=== PATIENT | male | born 1985 ===

== ENCOUNTER 2018-10-21 09:22 | Emergency (ER) | payer BC ==
--- NOTE | 2018-10-22 08:16 | UC ---
Discharge - Sign-Out/Discharge Documenting (check all that apply): Post-Discharge Follow Up All imaging exams completed and their final reports reviewed: No Studies - Discharge Plan Condition: Stable Disposition: LEFT WITHOUT BEING SEEN Referrals: Sarbjit Hill MD [Primary Care Provider] - - Billing Disposition and Condition Condition: STABLE Disposition: Left Without Being Seen
== END 2018-10-21 09:33 | disposition left against medical advice (07) ==
LOC: UCEAST 09:22
DX: Z53.21 Procedure and treatment not carried out due to patient leaving prior to being seen by health care provider (principal)

== ENCOUNTER 2019-11-27 16:26 | Emergency (ER) | payer BC ==
[2019-11-27 17:18] VITALS: BP 137/79
--- NOTE | 2019-11-27 17:21 | UC ---
Bite Injury/Animal HPI - History of Current Complaint Chief Complaint: UCBiteInjury Stated Complaint: DOG BITE LEFT ARM Time Seen by Provider: 11/27/19 17:20 Pain Intensity: 2 - Allergies/Home Medications Allergies/Adverse Reactions: Allergies Allergy/AdvReac Type Severity Reaction Status Date / Time beesting Allergy Severe facial Uncoded 11/27/19 17:19 swelling PMH/Surg Hx/FS Hx/Imm Hx - Surgical History Surgical History: Yes Surgery Procedure, Year, and Place: root canal/wisdom - Family History Known Family History: Positive: Other - no hx anaphylaxis in family - Social History Alcohol Use: Occasionally Substance Use Type: None Smoking Status (MU): Light Every Day Tobacco Smoker Type: eCigarettes - Immunization History Most Recent Tetanus Shot: unknown Physical Exam Vital Signs: Initial Vital Signs Temp 97.5 F 11/27/19 17:14 Pulse 74 11/27/19 17:14 Resp 16 11/27/19 17:14 BP 137/79 11/27/19 17:14 Pulse Ox 99 11/27/19 17:14 Discharge ED - Discharge Plan Referrals: Sarbjit Hill MD [Primary Care Provider] -
[2019-11-27] MEDS ORDERED: Tetan/Diph/Pertus SYR(Tdap)* 0.5 ML SYR(BOOSTRIX) use SYR contains LATEX IM ONE (17:32)
[2019-11-27] MEDS ORDERED: Amoxicillin/Clavulanate TAB* 875 MG PO ONE (17:45)
--- NOTE | 2019-11-27 21:19 | UC ---
Bite Injury/Animal HPI - HPI Summary HPI Summary: 33 year old male with no PMH was bitten today by his own dogs while trying to separate them after they began fighting over a treat. Both dogs vaccinated. + bite on left arm, + bleeding, no numbness, tingling, able to use arm, hand fully without problem. Tetanus unsure- believes within 5 years. - History of Current Complaint Chief Complaint: UCBiteInjury Stated Complaint: DOG BITE LEFT ARM Time Seen by Provider: 11/27/19 17:20 Hx Obtained From: Patient Severity Currently: Mild Severity Initially: Mild Pain Intensity: 2 Pain Scale Used: 0-10 Numeric Onset/Duration: Sudden Onset, Lasting Hours Type of Bite: Pet - dog Character: Puncture Aggravating Factor(s): Nothing Alleviating Factor(s): Nothing Associated Signs And Symptoms: Negative: Fever, Erythema, Drainage, Swelling, Lymphadenopathy, Numbness/Tingling Animal Available for Observation: Yes Animal Control Notified: Yes - Allergies/Home Medications Allergies/Adverse Reactions: Allergies Allergy/AdvReac Type Severity Reaction Status Date / Time beesting Allergy Severe facial Uncoded 11/27/19 17:19 swelling PMH/Surg Hx/FS Hx/Imm Hx Previously Healthy: Yes - Surgical History Surgical History: Yes Surgery Procedure, Year, and Place: root canal/wisdom - Family History Known Family History: Positive: Other - no hx anaphylaxis in family, Non- Contributory - Social History Alcohol Use: Occasionally Substance Use Type: None Smoking Status (MU): Light Every Day Tobacco Smoker Type: eCigarettes - Immunization History Most Recent Tetanus Shot: unknown Review of Systems All Other Systems Reviewed And Are Negative: Yes Skin: Positive: Other - bite, puncture wound Neurovascular: Negative: Decreased Sensation, Decreased Pulses Musculoskeletal: Negative: Arthralgia, Decreased ROM, Edema, Myalgia Neurological: Negative: Headache Is Patient Immunocompromised?: No Physical Exam Triage Information Reviewed: Yes Appearance: Well-Appearing, No Pain Distress, Well-Nourished Vital Signs: Initial Vital Signs Temp 97.5 F 11/27/19 17:14 Pulse 74 11/27/19 17:14 Resp 16 11/27/19 17:14 BP 137/79 11/27/19 17:14 Pulse Ox 99 11/27/19 17:14 Vital Signs Reviewed: Yes Eyes: Positive: Conjunctiva Clear ENT: Positive: Hearing grossly normal Musculoskeletal: Positive: Strength Intact - left upper arm, wrist, hand, ROM Intact - left upper arm, wrist, hand Neurological: Positive: Alert, Muscle Tone Normal - left upper arm, wrist, hand , Other: - SITLT left upper arm, wrist, hand, fingers Psychological Exam: Normal Skin: Positive: Other - two puncture wounds, full thickness on mid forearm, + bleeding controlled, irrigated well, one steri-strip placed on lateral wound to approximate edges but allow drainage, other left open, both to close secondarily. full ROM, strength of all L fingers, wrist. Bite Injury Course/Dx - Course Course Of Treatment: No x-rays, wounds able to be explored, first 3mm, second 1mm, able to see bottom of wounds, no FB potential. - ANtibitoics as directed for 7 days - Keep area covered, clean - Return with signs of infection- redness, swelling, increased pain, thick drainage - Follow up with primary doctor in 3-5 days for re-check - Differential Dx/Diagnosis Provider Diagnosis: Bite wound of forearm Discharge ED - Sign-Out/Discharge Documenting (check all that apply): Patient Departure All imaging exams completed and their final reports reviewed: No Studies - Discharge Plan Condition: Good Disposition: HOME Prescriptions: Amoxicillin/Clavulanate TAB* [Augmentin TAB 875*] 875 mg PO BID #14 tab Patient Education Materials: Animal Bite (ED) Referrals: Sarbjit Hill MD [Primary Care Provider] - Additional Instructions: - ANtibitoics as directed for 7 days - Keep area covered, clean - Return with signs of infection- redness, swelling, increased pain, thick drainage - Follow up with primary doctor in 3-5 days for re-check - Billing Disposition and Condition Condition: GOOD Disposition: Home - Attestation Statements Provider Attestation: This patient was not seen by me I was available for consult Chart reviewed CARMELINA
== END 2019-11-27 17:53 | disposition home or self-care (01) ==
LOC: UCCORT 16:26
DX: S51.852A Open bite of left forearm, initial encounter (principal); Z91.030 Bee allergy status; W54.0XXA Bitten by dog, initial encounter; Y92.9 Unspecified place or not applicable
CPT/HCPCS: 90471; 90715; 99212; A9270-GY; G0463